=== PATIENT | male | born 2000 | race Hispanic/Latino ===

== ENCOUNTER 2024-10-19 06:47 | Emergency (ER) | payer BC ==
[~2024-10-19] VITALS: Ht 170.2 cm; Wt 108.9 kg
[2024-10-19 07:14] VITALS: TEMP 97.3
[2024-10-19] MEDS: SODIUM CHLORIDE 0.9% 1000ML 1,000 ML IV ONE (07:16)
[2024-10-19] MEDS: ONDANSETRON HCL INJ 2MG/ML 2ML 2 MG/ML VIAL IV STA (07:16)
[2024-10-19 07:20] LABS: BASOPHILS % 1.0 % (0.0-1.0); EOSINOPHILS % 2.4 % (0.0-6.0); LYMPHOCYTES % 12.3 % (18.0-39.1); MONOCYTES % 6.0 % (4.4-11.3); NEUTROPHILS % 78.0 % (38.7-80.0); RED CELL DISTRIBUTION WIDTH 12.3 % (11.7-14.4)
[2024-10-19 07:51] LABS: EST GLOMERULAR FILTRATION RATE 100.0 ML/MIN (>=60)
[2024-10-19] MEDS: MAGNESIUM SULF 1GRAM/DEXTROSE 100 ML IV ONE (09:14)
[2024-10-19] MEDS: HALOPERIDOL LACTATE 5 MG/ML VIAL IV ONE (09:14)
[2024-10-19 11:00] VITALS: PULSE 84; RESP 15; O2SAT 99
[2024-10-19] MEDS ORDERED: REGLAN10 MG PO (11:20)
== END 2024-10-19 11:30 | disposition home or self-care (01) ==
LOC: ER 06:49
DX: R11.2 Nausea with vomiting, unspecified (principal); F17.210 Nicotine dependence, cigarettes, uncomplicated
CPT/HCPCS: 36415; 80053; 83690; 85025; 93005; 99284; J1630; J2405; J3475; J7030